=== PATIENT | male | born 1985 | race Caucasian/White ===

== ENCOUNTER 2018-12-16 17:52 | Emergency (ER) | payer MEDICAID ==
[2018-12-16 18:22] VITALS: BP 123/85; PULSE 89; RESP 18; TEMP 98.3; O2SAT 99
--- NOTE | 2018-12-16 19:53 | C.PDOC ---
History Of Present Illness 33 year old male presents with headache for 3 days and nasal congestion for 6 months. Patient was seen last month at a hospital in the [place] for headache, had CT and labs which were negative and discharged on tylenol. He states the pain is now back, describes the pain as pressure to the sides of his head. Denies other complaints. Time Seen by Provider: 12/16/18 19:14 Chief Complaint (Nursing): Cough, Cold, Congestion History Per: Patient History/Exam Limitations: None Onset/Duration Of Symptoms: Days Current Symptoms Are (Timing): Still Present Symptoms Have Been: Continuous Past Medical History Reviewed: Historical Data, Nursing Documentation, Vital Signs Vital Signs: Last Vital Signs Temp 98.3 F 12/16/18 18:19 Pulse 89 12/16/18 18:19 Resp 18 12/16/18 18:19 BP 123/85 12/16/18 18:19 Pulse Ox 99 12/16/18 18:19 Family History: States: No Known Family Hx - Social History Hx Alcohol Use: No Hx Substance Use: Yes - Immunization History Hx Tetanus Toxoid Vaccination: No Hx Influenza Vaccination: No Hx Pneumococcal Vaccination: No Review Of Systems ENT: Positive for: Nose Congestion Musculoskeletal: Negative for: Neck Pain Neurological: Positive for: Headache. Negative for: Weakness, Numbness, Dizziness Physical Exam - Physical Exam Appears: Well, Non-toxic, No Acute Distress Skin: Normal Color, Warm Head: Atraumatic, Normacephalic, Other (Mild pain with percussion to the maxillary sinus) Eye(s): bilateral: Normal Inspection (No photophobia), PERRL, EOMI Nose: Other (Enlarged bilateral turbinates, left more than right) Neck: Normal ROM, Supple Extremity: Normal ROM (x4) Neurological/Psych: Oriented x3, Normal Speech, Normal Cranial Nerves (Grossly intact), Normal Motor, Normal Sensation Gait: Steady ED Course And Treatment O2 Sat by Pulse Oximetry: 99 (Room air) Pulse Ox Interpretation: Normal Disposition Counseled Patient/Family Regarding: Diagnosis, Need For Followup, Rx Given - Disposition Disposition: HOME/ ROUTINE Disposition Time: 19:51 Condition: STABLE Prescriptions: Cetirizine HCl/Pseudoephedrine [Zyrtec-D Tablet] 1 each PO DAILY #14 tab.er.12h Ibuprofen [Motrin Tab] 800 mg PO TID PRN #21 tab PRN Reason: Pain, Moderate (4-7) Instructions: Sinus Headache (DC) Forms: Gen Discharge Inst Tuvaluan, Exepron (Tuvaluan) Print Language: AZERI - Clinical Impression Clinical Impression: Nasal sinus congestion, Sinus headache - PA / DOG OBEDIENCE INSTRUCTOR / Resident Statement MD/DO has reviewed & agrees with the documentation as recorded. - Scribe Statement The provider has reviewed the documentation as recorded by the Scribe Reynaldo Pantoja All medical record entries made by the Yasminibtanya were at my direction and personally dictated by me. I have reviewed the chart and agree that the record accurately reflects my personal performance of the history, physical exam, medical decision making, and the department course for this patient. I have also personally directed, reviewed, and agree with the discharge instructions and disposition.
== END 2018-12-16 20:08 | disposition home or self-care (01) ==
LOC: C.ER 17:52
DX: R51 Headache (principal); R09.81 Nasal congestion